=== PATIENT | male | born 1955 | race Caucasian/White ===

== ENCOUNTER 2024-10-13 10:46 | Outpatient (CLI) | payer BC, SELFPAY | END 2024-10-13 10:47 | disposition home or self-care (01) | LOC: NFLDREF 10-17 17:51 | PROVIDERS: PCP Nurse Practitioner Family; Referring Provider Nurse Practitioner Family; Visit Provider Nurse Practitioner Family | DX: E78.2 Mixed hyperlipidemia (principal); R03.0 Elevated blood-pressure reading, without diagnosis of hypertension; Z12.5 Encounter for screening for malignant neoplasm of prostate | CPT/HCPCS: 80053; 80061; G0103 ==